=== PATIENT | female | born 1995 | race Caucasian/White ===

== ENCOUNTER 2020-07-03 10:59 | Emergency (ER) | payer OTHER, SELFPAY ==
[2020-07-03 11:10] VITALS: BP 128/93; PULSE 92; RESP 18; TEMP 36.8; O2SAT 97; BMI 19.5
--- NOTE | 2020-07-03 11:25 | PC.NURSE ---
Pt declining to exchange floor manager, denies SI/HI, states she is just anxious and wanted to talk to a counselor. PT denies history of self harm, denies recent drug/etoh use. Provider aware. Care team to speak briefly with PT.
[2020-07-03 11:26] VITALS: BP 126/78; PULSE 81; RESP 18; TEMP 37.2; O2SAT 99
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
--- NOTE | 2020-07-03 13:02 | MHC.CARE ---
CARE Team met with patient in the common area of ED/, she was anxious and tearful throughout. Discussed the multiple recent stressors and past traumas that are impacting her current functioning, she is understandably anxious and reactive but feels unable to manage. Said that at no time has she ever felt she would harm herself or anyone else, does not use drugs or alcohol, has her own apartment and a part-time job she enjoys. Patient has private insurance through her stepmother but does not have reliable income for co-pays, is trying to apply for [employer] and food stamps but hitting roadblocks. Provided psychoeducation regarding physical symptoms and thought processes when having panic attacks, practiced breathing techniques and CBT skills to manage racing and overwhelming negative thoughts. Patient is open to referral to therapy with [facility] [employer] whose students who offer no cost counseling to uninsured. In addition, gave patient written material about managing stress, number for [facility], information about [facility] and numbers for local crisis teams. No need for further interventions, she is safe to leave, calling her sister for a ride. CARE Team will contact [facility] and ask them to reach out to patient directly. Discussed disposition with providers.
--- NOTE | 2020-07-04 09:00 | MHC.CARE ---
CARE Team provide [facility] Pts contact information.
== END 2020-07-03 13:30 | disposition home or self-care (01) ==
PROVIDERS: Emergency Provider Internal Medicine
DX: F41.1 Generalized anxiety disorder (principal); F43.0 Acute stress reaction; Z63.0 Problems in relationship with spouse or partner; Z79.899 Other long term (current) drug therapy
CPT/HCPCS: 99284